=== PATIENT | male | born 1990 | race Caucasian/White ===

== ENCOUNTER 2016-07-17 15:00 | Emergency (ER) | payer OTHER ==
[~2016-07-17 15:00] MED LIST: BENZONATATE PO; CHANTIX1 DOSE-PAC PO; CLINDAMYCIN HC300 MG PO; DARVOCET-N 1001 TA1 DOB; DESYREL50 MG PO; FAMOTIDINE PO; IBUPROFEN PO; MEDROL4 MG/DOSE- PO; MIRALAX17 GM PO; NO MEDICATIONS; TYLENOL #3 PO; VOLTAREN75 MG PO; ZOFRAN ODT4 MG/UDTAB PO
== END 2016-07-17 16:20 | disposition home or self-care (01) ==
LOC: SED 15:00
DX: B34.9 Viral infection, unspecified (principal); F17.200 Nicotine dependence, unspecified, uncomplicated; Z90.89 Acquired absence of other organs; Z88.1 Allergy status to other antibiotic agents
CPT/HCPCS: 99282

== ENCOUNTER 2016-11-07 01:03 | Emergency (ER) | payer OTHER ==
[~2016-11-07] VITALS: Ht 172.7 cm; Wt 63.5 kg
== END 2016-11-07 02:02 | disposition home or self-care (01) ==
LOC: SED 01:03
DX: J40 Bronchitis, not specified as acute or chronic (principal); F17.200 Nicotine dependence, unspecified, uncomplicated; Z88.0 Allergy status to penicillin
CPT/HCPCS: 99283